=== PATIENT | female | born 1970 ===

== ENCOUNTER 2021-10-07 05:50 | Inpatient (IN) | payer OTHER ==
[~2021-10-07 05:50] MED LIST: DIOVAN320 MG PO; INDAPAMIDE1.25 MG PO
[2021-10-08] MEDS ORDERED: LATANOPROST2.5 ML (08:08)
[2021-10-08] MEDS ORDERED: AMLODIPINE BESY10 MG (08:09)
== END 2021-10-08 19:40 | disposition home or self-care (01) | DRG 627 ==
LOC: CIR.AMB 05:50 → SURH 12:13
PROVIDERS: ADMIT Otolaryngology; ATTEND Otolaryngology
PROC: 0GBP0ZZ Excision of Left Inferior Parathyroid Gland, Open Approach (ICD-10-PCS; principal; 2021-10-07 09:45)
DX: D35.1 Benign neoplasm of parathyroid gland (principal); Z20.822 Contact with and (suspected) exposure to COVID-19